=== PATIENT | male | born 1945 | race Caucasian/White ===

== ENCOUNTER 2016-11-11 06:25 | Inpatient (IN) | payer MEDICARE, OTHER ==
[2016-11-02 20:09] LABS: BASOPHILS 0.4 %; BASOPHILS ABSOLUTE 0.04 10/3/uL (0.0-0.16); EOSINOPHILS 4.3 %; EOSINOPHILS ABSOLUTE 0.39 10/3/uL (0.0-0.53); HEMATOCRIT 40.2 % (40.0-51.0); HEMOGLOBIN 13.6 g/dL (13.6-17.8); IMMATURE GRANULOCYTES 0.4 %; IMMATURE GRANULOCYTES ABSOLUTE 0.04 10/3/uL (0.0-0.11); LYMPHOCYTES 13.9 %; LYMPHOCYTES ABSOLUTE 1.25 10/3/uL (0.67-4.30); MEAN CORPUS HGB CONC 33.8 g/dL (32.0-36.0); MEAN CORPUSCULAR HEMOGLOB 32.5 pg (26.0-34.0); MEAN CORPUSCULAR VOLUME 96.2 fL (80-100); MEAN PLATELET VOLUME 11.7 fL (9.2-13.0); MONOCYTES 6.2 %; MONOCYTES ABSOLUTE 0.56 10/3/uL (0.21-1.20); NEUTROPHILS 74.8 %; NEUTROPHILS ABSOLUTE 6.72 10/3/uL (2.02-8.40); PLATELET COUNT 179 10/3/uL (150-400); RBC DISTRIBUTION WIDTH 14.2 % (12.0-16.0); RED CELL COUNT 4.18 10/6/uL (4.7-6.1)
[2016-11-02 20:12] LABS: MANUAL DIFF NO %
[2016-11-02 20:18] LABS: INTERNATIONAL NORMAL RATI 1.4 UNITS (-); PROTIME (NOT ORD) 17.1 SEC (12.0-14.5)
[2016-11-02 20:24] LABS: BUN (BLOOD UREA NITROGEN) 15 MG/DL (6-23); CALCIUM, SERUM 9.4 MG/DL (8.5-10.4); CHLORIDE, SERUM 103 MMOL/L (96-112); CO2 (CARBON DIOXIDE) 32 MMOL/L (24-34); CREATININE 0.76 MG/DL (0.70-1.30); GFR AFRICAN AMERICAN 107 ML/MIN (>=60); GFR NON AFRICAN AMERICAN 92 ML/MIN (>=60); GLUCOSE, SERUM 90 MG/DL (60-99); POTASSIUM, SERUM 4.4 MMOL/L (3.5-5.3); SODIUM, SERUM 143 MMOL/L (135-148)
[2016-11-03 21:01] LABS: WBC (NOT ORDERED) (RFLEX) 0 (0-5)
[2016-11-03 21:25] LABS: ASCORBIC ACID (UR NOT ORDER) NEG (NEG); BILIRUBIN, URINE NEGATIVE (NEG); KETONE, URINE NEGATIVE (NEG); LEUKOCYTE ESTERASE(NOT OR NEG (NEG)
--- NOTE | ~2016-11-11 | OP ---
Record Of Operation [facility] [address] [place]. [address] NAME: DAYNE TORIBIO : 47 STATUS : ADM IN PAT#: [id number] AGE: 71 ADM/REG DATE : 11/11/16 MR#: [id number] REPORT SERV DATE: 11/12/16 DICTATED BY: HOWARD KASPER. DATE: 11/11/16 REPORT STATUS : Draft TRANSCRIBED BY: MODL DATE: 11/11/16 DATE OF PROCEDURE: 11/11/2016 OPERATIVE SURGEON: Howard Kasper M.D. [employer]PERATIVE [employer] ARCHITECT: SHERLY Mcconnell COMPLICATIONS: None. ESTIMATED BLOOD LOSS: Less than 75 mL. DISPOSITION: Stable to recovery room. ANESTHESIA: General with interscalene block augmentation for postoperative pain control. PREOPERATIVE DIAGNOSES: 1. Left shoulder pain. 2. End-stage glenohumeral joint osteoarthritis. POSTOPERATIVE DIAGNOSES: 1. Left shoulder pain. 2. End-stage glenohumeral joint osteoarthritis. OPERATIVE PROCEDURE: Left total shoulder arthroplasty using Biomet comprehensive total shoulder system. IMPLANTS USED: An 11 x 83 mm mini humeral stem, a 50 x 21 mm modular head with E-offset, a 4 mm medium glenoid with Regenerex post. OPERATIVE PROCEDURE: The diagnoses listed above as well as the recommended surgical procedure and risks and benefits thereof were discussed in full detail with Mr. Toribio and family on the morning o 11/11/2016. The patient and family asked appropriate questions which were answered to their satisfaction. An informed consent was signed, witnessed, and place in the chart. The right upper extremity was marked for confirmation and an interscalene block was placed by the anesthesia team with good success. The patient was then wheeled to the operative arena where general endotracheal anesthesia was administered. The patient was placed in the beachchair positioner with all nonoperative extremities and head well padded and secured for the duration of the case. The patient received pre- operative antibiotics. A surgical pause was performed confirming both the correct patient as well as the proper surgical site and procedure. All present were in agreement. All standard anatomical landmarks as well as deltopectoral incision site were demarcated using a sterile marking pin. A 10-blade was used to create an 8 cm curvilinear incision just lateral to the coracoid process and directed towards the lateral insertion of the deltoid. The soft tissues were dissected down sharply to expose the deltopectoral fascia. The cephalic vein and the fat stripe were identified. The vein was retracted medially using Record Of Operation [facility] [address] [place]. [address] NAME: DAYNE TORIBIO : 47 STATUS : ADM IN PAT#: [id number] AGE: 71 ADM/REG DATE : 11/11/16 MR#: [id number] REPORT SERV DATE: 11/12/16 DICTATED BY: HOWARD KASPER DATE: 11/11/16 REPORT STATUS : Draft TRANSCRIBED BY: DALLAS DATE: 11/11/16 careful sharp dissection. Next, a Pearce Andrade retractor was placed retracting the deltoid laterally and the pectoralis and coracobrachialis medially. The deltopectoral interval was the further exposed and the clavipectoral fascia was identified. Electrocautery was used to split the clavipectoral fascia exposing the anterior surface of the subscapularis. The lesser tuberosity was identified and the subscapularis was released 1 cm medial to the lesser tuberosity. The subscapularis was then tagged using Fiber Wire suture for later repair. The biceps tendon was then released and tagged as well for later tenodesis. The glenohumeral joint was then dislocated and the humeral head was brought out the operative wound very carefully. All osteophytes were then removed using a rongeur. Our starting awl was used with increasing sizes of diaphyseal reamers to obtain the best fit with excellent cortical chatter. The intramedullary cutting jig was then assembled and set with the appropriate version to meet the patient's normal anatomy. An oscillating saw was then used to make our proximal humeral cut. The proximal humeral portion of the head was then taken to the back table and measured and matched up with our trial implants. Next, the broaches were used in increasing sizes up to the size which fit most perfectly. The head protector was placed and the proximal humerus was retracted posteriorly and inferiorly out of the way of the glenoid. The labrum was then excised in full using electrocautery. All additional osteophytes and osteochondral loose bodies were removed. Next, the glenoid reamers were used to ream the glenoid down to a healthy bleeding bone surface. Our central peg hole was then drilled and our peg guide was used to drill the subsequent three peg holes. A coring drill was then used to core for the glenoid post. A trial glenoid was then placed and found to fit perfectly. Next, the cement was mixed and placed into the peg holes. A polyethylene glenoid was assembled with an appropriate post and tapped into place. An excellent scratch fit was obtained. Pulsatile lavage was used to irrigate this implant as well as the glenohumeral joint. The proximal humerus was again brought out the operative wound. Trial humeral head implants were then tested. The stem was implanted into the proximal humerus after copious irrigation with sterile saline. This was impacted into place. Our Versa Dial was set and then impacted on the back table with an excellent Ledezma-Taper fit. This was then placed into the proximal humeral stem component and impacted into place with excellent security. At this juncture, the glenohumeral joint was then reduced once again. The glenohumeral joint alignment was near anatomic. Irrigation was used under pulsatile lavage to irrigate out the operative wound as well as the implants. Bone holes had been predrilled through the lesser tuberosity and four #2 Fiber Wire sutures were passed through this region. These were then taken through the soft tissues laterally and then tied down to our previously placed subscapularis sutures. An excellent repair of the subscapularis was obtained back down to the lesser tuberosity with no instability whatsoever. The biceps tendon was then tenodesed. The rotator interval was then closed also with #2 Fiber Wire suture. This layer was then again washed out with pulsatile lavage and copious amounts of sterile normal saline. The deltopectoral interval was closed with 2-0 undyed Vicryl. 2-0 undyed Vicryl was used to close the subcutaneous layer and a running Monocryl was placed below the skin. Steri-Strips were applied. Sterile dressing was then secured with Medipore tape. The patient was placed in an Ultra-Sling for post-operative immobilization. The patient's postoperative exam was within normal limits understanding that his interscalene block was still in effect. In the postanesthesia care unit, the patient did complain of pain in the forearm and radiating down into the small two fingers in the ulnar nerve distribution. He has extensive history of Record Of [facility] [address] [place]. [address] NAME: DAYNE TORIBIO : 47 STATUS : ADM IN PAT#: [id number] AGE: 71 ADM/REG DATE : 11/11/16 MR#: [id number] REPORT SERV DATE: 11/12/16 DICTATED BY: HOWARD KASPER. DATE: 11/11/16 REPORT STATUS : Draft TRANSCRIBED BY: MODL DATE: 11/11/16 multiple carpal tunnel releases and cubital tunnel releases in the past for known neuropathy. I do believe that he likely has an exacerbation of an underlying ulnar neuritis. We will go ahead and x-ray the forearm to make sure that there was no forearm issues, at the same time that we get the x-ray of the shoulder. We will treat the symptoms with appropriate IV and oral medication, and optimistically see that they taper over time. A lengthy discussion was held with the patient's family detailing all operative findings as well as procedures performed with all questions answered to their satisfaction. DANIKA/DALLAS Howard Kasper M.D. / [id number] CC: Howard Kasper M.D.
[~2016-11-11 06:25] MED LIST: ACAI BERRY PO; ALBUTEROL0.63 MG/3 INH; ALEVE220 MG PO; ALPHA LIPOIC ACID PO; ALPHA LIPOIC100 MG PO; ALPHA LIPOIC300 MG PO; ALPHA LIPOIC50 M1 PO; ANOROELLIPTA INH; APPLE CIDER VINEGAR PO; ATEN25 PO; ATEN50 PO; ATENOLOL 75 MG; BILBERRY PO; C1 PO; C5 PO; CALCIUM OTC PO; CALTRA600D PO; CAT1 PO; CAT2 PO; CINNAMON PO; CO Q 10 PO; CO Q-10100 MG PO; CO Q-10200 MG PO; COUMADIN10 MG PO; COUMADIN4 MG PO; CYANO1000T PO; DHE1 PO; DHEA25 MG OR; DURAFLEX PO; DURICEF PO; FLECAINIDE50 MG PO; FLEX PO; FLONASE NAS; GABAPENTIN 1200 MG; GARLIC PO; GARLIFE PO; GINGER PO; GINKGO BILO2 PO; GINKGO BILOB30 M1 PO; GINSENG PO; K500 PO; KLOR-CON M2020 MEQ PO; KRILLOIL PO; L-ARGININE PO; L40 PO; LECITHIN1200 MG OR; LEVAQUIN750 MG PO; LUTEIN20 MG OR; MAG OXIDE250 MG PO; MAGNESIUM MALATE PO; MAGNESIUM OTC PO; MAGNESIUM OXIDE PO; MAGOX4 PO; MELATONIN5 M1 PO; MILK THISTLE PO; MULTIPLE VIT PO; MULTIVIT/MIN PO; NEUR300 PO; NEUR600 PO; NEUR800 PO; NIACOR500 MG PO; NORV10 PO; NORV5 PO; PRADAXA150 MG PO; PRIN20 PO; PROZ10 PO; SELENIUM PO; SILVADENE1 % TOP; SOYA LECITHN1200 MG PO; TUMERIC PO; TURMERIC PO; VALERIAN ROOT PO; VITAMIN B PO; VITAMIN B-121000 MC1 SL; VITAMIN B12 OTC PO; VITAMIN C OTC PO; VITAMIN D1000 UNI1 PO; VITAMIN D31000 UNIT PO; VITC500 PO; VITS; Z300 PO; ZESTORETIC1 TA1 PO; ZESTRIL20 MG PO; ZINC GLUCON50 MG PO; ZINC GLUCONATE PO; ZINC OTC PO; [UNRECOGNIZED DRUG - OTHER]; [UNRECOGNIZED DRUG - OTHER] PO; [UNRECOGNIZED DRUG - OTHER] PO; [UNRECOGNIZED DRUG - OTHER] PO; [UNRECOGNIZED DRUG - OTHER] PO; [UNRECOGNIZED DRUG - OTHER] PO; [UNRECOGNIZED DRUG - OTHER] PO; [UNRECOGNIZED DRUG - OTHER] PO; [UNRECOGNIZED DRUG - OTHER] PO
[2016-11-12 06:03] LABS: HEMOGLOBIN 11.8 g/dL (13.6-17.8)
[2016-11-12 06:05] LABS: HEMATOCRIT 34.5 % (40.0-51.0)
[2016-11-12 06:17] LABS: BUN (BLOOD UREA NITROGEN) 13 MG/DL (6-23); CALCIUM, SERUM 8.6 MG/DL (8.5-10.4); CHLORIDE, SERUM 102 MMOL/L (96-112); CO2 (CARBON DIOXIDE) 29 MMOL/L (24-34); CREATININE 0.64 MG/DL (0.70-1.30); GFR AFRICAN AMERICAN 115 ML/MIN (>=60); GFR NON AFRICAN AMERICAN 99 ML/MIN (>=60); POTASSIUM, SERUM 4.3 MMOL/L (3.5-5.3); SODIUM, SERUM 141 MMOL/L (135-148)
[2016-11-12 06:20] LABS: GLUCOSE, SERUM 122 MG/DL (60-99)
[2016-11-12] MEDS ORDERED: OXYCON10 PO (10:12)
[2016-11-12] MEDS ORDERED: ZOFRAN4 PO (10:13)
[2016-11-12] MEDS ORDERED: ASAEC PO (10:13)
[2016-11-12] MEDS ORDERED: PCET PO (10:13)
[2017-03-13] MEDS ORDERED: PROZAC PO (12:28)
[2017-03-13] MEDS ORDERED: NEUR600 PO (12:28)
[2017-03-13] MEDS ORDERED: ZESTORETIC1 TA1 PO (12:29)
[2017-03-13] MEDS ORDERED: VITAMIN B-121000 MC1 PO (12:29)
[2017-03-13] MEDS ORDERED: PRADAXA150 MG PO (12:29)
[2017-03-13] MEDS ORDERED: BION TEARS OPH (12:29)
[2017-03-13] MEDS ORDERED: CENTRUM PO (12:29)
[2017-03-13] MEDS ORDERED: CINNAMONPO PO (12:30)
[2017-03-13] MEDS ORDERED: MAGNESIUM OTC PO (12:30)
[2017-03-13] MEDS ORDERED: VITC500 PO (12:30)
[2017-03-13] MEDS ORDERED: VITAMIN D1000 UNI1 PO (12:30)
[2017-03-13] MEDS ORDERED: ALPHA LIPOIC300 MG PO (12:31)
[2017-03-13] MEDS ORDERED: MELATONIN5 M1 PO (12:32)
[2017-03-13] MEDS ORDERED: VALERIAN ROOT PO (12:33)
[2017-03-13] MEDS ORDERED: OTC SUPPLEMENTS PO (12:33)
[2017-03-13] MEDS ORDERED: [UNRECOGNIZED DRUG - OTHER] PO (12:33)
[2017-03-13] MEDS ORDERED: KDUR20 PO (12:34)
[2017-03-13] MEDS ORDERED: ATEN25 PO (12:34)
[2017-03-13] MEDS ORDERED: L40 PO (12:34)
[2017-03-13] MEDS ORDERED: Z300 PO ×2 (12:34→12:35)
[2017-03-13] MEDS ORDERED: PRIN20 PO (12:35)
[2017-03-13] MEDS ORDERED: FLECAINIDE50 MG PO (12:35)
[2017-03-13] MEDS ORDERED: CAT2 PO (12:38)
[2017-03-13] MEDS ORDERED: FLEX PO (12:39)
[2017-03-16] MEDS ORDERED: ASAB PO (14:49)
[2017-03-16] MEDS ORDERED: LIPITOR40 PO (15:06)
== END 2016-11-12 15:39 | disposition home or self-care (01) | DRG 483 ==
LOC: SDC/OF 06:25 → PACU 11:49 → 3SO 13:42
PROVIDERS: Specialist
PROC: 0RRK0JZ Replacement of Left Shoulder Joint with Synthetic Substitute, Open Approach (ICD-10-PCS; principal; 2016-11-11 07:45)
DX: M19.012 Primary osteoarthritis, left shoulder (principal); I48.2 Chronic atrial fibrillation; I10 Essential (primary) hypertension; Z79.01 Long term (current) use of anticoagulants; M10.9 Gout, unspecified; E66.9 Obesity, unspecified; Z68.38 Body mass index [BMI] 38.0-38.9, adult
CPT/HCPCS: 36415; 73030-LT; 73090-LT; 73110-LT; 80048; 81001; 85014; 85018; 85025; 85610; 86850; 86900; 86901; 87641; 88305; 88311; 97161-GP; A9270-GY; C1776; J0330; J0690; J1170; J2175; J2250; J2370; J2405; J2710; J2795; J3010